=== PATIENT | female | born 1985 | race Caucasian/White ===

== ENCOUNTER 2018-07-08 21:26 | Emergency (ER) | payer OTHER ==
[2018-07-08 21:36] VITALS: BP 147/87
[2018-07-08] MEDS ORDERED: HYDROmorphone 1 MG/ML Syringe IVPUSH STA (21:51)
[2018-07-08] MEDS ORDERED: Ondansetron 4 MG/2 ML SDV IVPUSH ONE (21:51)
[2018-07-08] MEDS ORDERED: Sodium Chloride 0.9% 1,000 ML IV SCH (22:00)
--- NOTE | 2018-07-08 22:06 | EDM.PDOC ---
ED HPI GENERAL MEDICAL PROBLEM - General Chief Complaint: Abdominal Pain Stated Complaint: HAS CA PAIN IN STOMACH Time Seen by Provider: 07/08/18 21:36 Source of Information: Reports: Patient, Family (), RN Notes Reviewed History Limitations: Reports: No Limitations - History of Present Illness INITIAL COMMENTS - FREE TEXT/NARRATIVE: The patient states that she developed sharp upper abdominal pain around 20:00, shortly followed by nausea and dry heaves. The pain waxes and wanes, with a wave coming about every 5-10 minutes. It does not radiate. She has not identified any modifiers, although she states that she is feeling somewhat better while supine here in the ED. Her nausea has resolved. No recent fever. No associated diarrhea. No urinary symptoms or flank pain. The patient reports that she had similar symptoms, although less severe, this morning. The patient states that she took some Tums earlier today, and famotidine just prior to coming to the ED, without relief of her symptoms. The patient has a history of adenocarcinoma of the cervix. She states that she was initially staged at IB1, but that when she had her hysterectomy, lymph node involvement was found, which would make her IIIC1 or IIIC2. She is currently receiving both chemotherapy and radiation therapy. Her PCP is Dr. Benoit. Her Oncologist in [place] is Dr. Mendenhall. Her Gynecologic Oncologist in [place] is Dr. Santiago. Epigastric Pain Score (Numeric/FACES): 8 - Related Data Allergies Allergy/AdvReac Type Severity Reaction Status Date / Time codeine Allergy Vomiting Verified 07/08/18 21:36 ondansetron [From Zofran] Allergy Abdominal Verified 07/08/18 21:36 Cramps Home Meds: Home Meds Cetirizine [ZyrTEC] 10 mg PO BEDTIME PRN 01/27/14 [History] Omeprazole [Prilosec] 40 mg PO QAM #30 capsule. 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: Neurological History: Reports: Migraines Endocrine/Metabolic History: Reports: Diabetes, Gestational Oncologic (Cancer) History: Reports: Cervix - Past Surgical History HEENT Surgical History: Reports: Naso-Sinus Surgery (Deviated septum, x 2), Oral Surgery (wisdom teeth extraction), Tonsillectomy Cardiovascular Surgical History: Reports: Other (See Below) (Left Port-A-Cath) Female Surgical History: Reports: Hysterectomy Musculoskeletal Surgical History: Reports: Ganglion Cyst (left wrist) Social & Family History - Tobacco Use Smoking Status *Q: Never Smoker Second Hand Smoke Exposure: No - Caffeine Use Caffeine Use: Reports: None - Alcohol Use Alcohol Use History: Yes Alcohol Use Frequency: Socially - Recreational Drug Use Recreational Drug Use: No - Living Situation & Occupation Living situation: Reports: , with Spouse, with Family (1 child) 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 ED EXAM, GI/ABD - Physical Exam Exam: See Below Exam Limited By: No Limitations General Appearance: Alert, WD/WN, Mild Distress (occasionally winces with abdominal pain) Eyes: Bilateral: Normal Appearance, EOMI Ears: Normal External Exam, Hearing Grossly Normal Nose: Normal Inspection Throat/Mouth: Normal Inspection, Normal Lips, Normal Voice, No Airway Compromise Head: Atraumatic, Normocephalic Neck: Normal Inspection, Full Range of Motion Respiratory/Chest: No Respiratory Distress, Lungs Clear, Normal Breath Sounds, No Accessory Muscle Use Cardiovascular: Normal Peripheral Pulses, Regular Rate, Rhythm, No Edema, No Gallop, No JVD, No Murmur, No Rub GI/Abdominal Exam: Soft, No Organomegaly, No Distention, No Abnormal Bruit, No Mass, Tender (modest, right upper quadrant only. Essentially nontender elsewhere.), Abnormal Bowel Sounds (hyperactive, but no tinkles or rushes) (Female) Exam: Deferred Rectal (Female) Exam: Deferred Back Exam: Normal Inspection, Full Range of Motion. No: CVA Tenderness (L), CVA Tenderness (R) Extremities: Normal Inspection, Normal Range of Motion, No Pedal Edema, Normal Capillary Refill Neurological: Alert, Oriented, Normal Cognition, No Motor/Sensory Deficits Psychiatric: Normal Affect Skin Exam: Warm, Dry, Intact, Normal Color, No Rash Course - Vital Signs Last Recorded V/S: Last Vital Signs Temp 36.6 C 07/08/18 21:33 Pulse 86 07/08/18 21:33 Resp 18 07/08/18 21:33 BP 147/87 H 07/08/18 21:33 Pulse Ox 99 07/08/18 21:33 - Orders/Labs/Meds Orders: Active Orders 24 hr Category Date Time Status Abdomen 1V Upright [CR] Stat Exams 07/08/18 21:52 Taken Abdomen Pelvis w Cont [CT] Stat Exams 07/08/18 22:47 Taken Sodium Chloride 0.9% [Normal Saline] 1,000 ml Med 07/08/18 22:00 Active IV ASDIRECTED Medication Orders Sodium Chloride (Normal Saline) 1,000 mls @ 150 mls/hr IV ASDIRECTED BARBARA Last Admin: 07/08/18 22:36 Dose: 150 mls/hr Labs: Laboratory Tests 07/08/18 07/08/18 Range/Units 22:20 22:20 WBC 4.50 (3.98-10.04) K/mm3 RBC 3.68 L (3.98-5.22) M/mm3 Hgb 10.1 L (11.2-15.7) gm/L Hct 30.8 L (34.1-44.9) % MCV 83.7 (79.4-94.8) fl MCH 27.4 (25.6-32.2) pg MCHC 32.8 (32.2-35.5) g/dl RDW Std Deviation 38.7 (36.4-46.3) fL Plt Count 151 L (182-369) K/mm3 MPV 10.9 (9.4-12.3) fl Neutrophils % (Manual) 82 H (40-60) % Band Neutrophils % 0 (0-10) % Lymphocytes % (Manual) 7 L (20-40) % Atypical Lymphs % 0 % Monocytes % (Manual) 11 H (2-10) % Eosinophils % (Manual) 0 L (0.7-5.8) % Basophils % (Manual) 0 L (0.1-1.2) Platelet Estimate Adequate Hypochromasia 1+ slight Microcytosis 1+ slight RBC Morph Comment Abnormal Sodium 139 (136-145) mEq/L Potassium 3.5 (3.5-5.1) mEq/L Chloride 105 (98-107) mEq/L Carbon Dioxide 24 (21-32) mEq/L Anion Gap 13.5 (5-15) BUN 13 (7-18) mg/dL Creatinine 0.7 (0.55-1.02) mg/dL Est Cr Clr Drug Dosing 94.56 mL/min Estimated GFR (MDRD) > 60 (>60) mL/min BUN/Creatinine Ratio 18.6 H (14-18) Glucose 100 (74-106) mg/dL Calcium 9.3 (8.5-10.1) mg/dL Total Bilirubin 0.2 (0.2-1.0) mg/dL AST 12 L (15-37) U/L ALT 35 (14-59) U/L Alkaline Phosphatase 53 (46-116) U/L Total Protein 6.6 (6.4-8.2) g/dl Albumin 3.6 (3.4-5.0) g/dl Globulin 3.0 gm/dL Albumin/Globulin Ratio 1.2 (1-2) Lipase 105 (73-393) U/L Meds: Medications Generic Name Dose Route Start Last Admin Trade Name Freq PRN Reason Stop Dose Admin Sodium Chloride 1,000 mls @ 150 mls/hr 07/08/18 22:00 07/08/18 22:36 Normal Saline IV 150 mls/hr ASDIRECTED BARBARA Administration Discontinued Medications Generic Name Dose Route Start Last Admin Trade Name Freq PRN Reason Stop Dose Admin Diatrizoate Meglum/Diatrizoate Sod 90 ml 07/09/18 00:36 07/09/18 00:58 Gastrografin 37% PO 07/09/18 00:37 90 ml ONETIME ONE Administration Hydromorphone HCl 1 mg 07/08/18 21:51 Dilaudid IVPUSH 07/08/18 21:52 ONETIME STA Iopamidol 100 ml 07/09/18 00:36 07/09/18 00:58 Isovue-300 (61%) IVPUSH 07/09/18 00:37 100 ml ONETIME ONE Administration Metoclopramide HCl 10 mg 07/08/18 22:22 07/08/18 22:36 Reglan IVPUSH 07/08/18 22:23 10 mg ONETIME STA Administration Morphine Sulfate 6 mg 07/08/18 22:22 07/08/18 22:35 Morphine IVPUSH 07/08/18 22:23 Not Given ONETIME ONE Morphine Sulfate Confirm 07/08/18 22:25 07/08/18 22:36 Morphine Administered 07/08/18 22:26 10 mg Dose Administration 10 mg .ROUTE .STK-MED ONE Morphine Sulfate 6 mg 07/08/18 22:34 07/08/18 22:36 Morphine IVPUSH 07/08/18 22:35 Not Given ONETIME ONE Ondansetron HCl 4 mg 07/08/18 21:51 Zofran IVPUSH 07/08/18 21:52 ONETIME ONE - Re-Assessments/Exams Free Text/Narrative Re-Assessment/Exam: 07/08/18 21:53 The repetitive waves of pain that the patient is experiencing, along with active bowel sounds, only modest tenderness, and nausea with dry heaves, without diarrhea, is concerning for a small bowel obstruction. I have ordered blood work, including a lipase, and an upright abdominal radiograph, to look for air-fluid levels. If her x-ray is positive for air-fluid levels, I believe we can treat for a small bowel obstruction without having to administer the unnecessary radiation of the CT scan. If her x-ray is negative, however, I believe a CT scan of her abdomen and pelvis will be needed. I have ordered Dilaudid, Zofran, and IV fluid. 07/08/18 22:23 Notified by Belinda CRAFT that the patient prefers morphine over Dilaudid, and that Zofran may cause stomach cramps. I therefore canceled both the Dilaudid and Zofran, and have ordered morphine and Reglan. 07/08/18 22:45 Upright abdominal radiograph appears to demonstrate a nonspecific bowel gas pattern. No free air. Numerous surgical clips in the pelvis, consistent with prior pelvic surgery. Formal read per the Radiologist pending. 07/08/18 22:49 As above, with the abdominal radiograph without findings consistent with a small bowel obstruction, I believe a CT scan of the abdomen and pelvis is necessary to determine the cause of her abdominal pain. This was discussed with the patient, who is agreeable. 07/09/18 01:29 CT of the abdomen and pelvis with oral and IV contrast is read by vRmontana as "No evidence of acute abdominopelvic pathology." 07/09/18 01:51 Test results discussed with the patient and her . She states that she is feeling much better, although still has some nausea. Sindhu's workup is unremarkable, and does not explain the cause of her symptoms. I believe that the patient can safely be discharged home. She states that she has plenty of antiemetics at home. I would like her to contact her Oncologist to let them know that she was in the ED. Departure - Departure Time of Disposition: 01:52 Disposition: Home, Self-Care 01 Condition: Fair Clinical Impression: Upper abdominal pain of unknown etiology, Nausea - Discharge Information *PRESCRIPTION DRUG MONITORING PROGRAM REVIEWED*: Not Applicable *COPY OF PRESCRIPTION DRUG MONITORING REPORT IN PATIENT ADAM: Not Applicable Referrals: Sunil Mendenhall MD [Primary Care Provider] - Demond Benoit MD [Physician] - Forms: ED Department Discharge Additional Instructions: You were seen in the emergency room for upper abdominal pain and nausea with dry daniela arzola. Workup in the ER included blood work, an upright abdominal x-ray, and a CT scan of your abdomen and pelvis with oral and IV contrast. Your entire workup was unremarkable, and did not explain the cause of your pain. You may continue to take your anti-nausea medicines as prescribed. We recommend that you notify your Oncologists of your ER visit and negative workup. Follow-up with your PCP, Dr. Benoit, as needed. If any other problems, please do not hesitate to return to the ER. - My Orders Last 24 Hours: My Active Orders 07/08/18 21:52 Abdomen 1V Upright [CR] Stat 07/08/18 22:00 Sodium Chloride 0.9% [Normal Saline] 1,000 ml IV ASDIRECTED 07/08/18 22:47 Abdomen Pelvis w Cont [CT] Stat - Assessment/Plan Last 24 Hours: My Active Orders 07/08/18 21:52 Abdomen 1V Upright [CR] Stat 07/08/18 22:00 Sodium Chloride 0.9% [Normal Saline] 1,000 ml IV ASDIRECTED 07/08/18 22:47 Abdomen Pelvis w Cont [CT] Stat
[2018-07-08] MEDS ORDERED: Morphine 10 MG/ML Syringe IVPUSH ONE ×2 (22:22→22:34)
[2018-07-08] MEDS ORDERED: Metoclopramide 10 MG/2 ML SDV IVPUSH STA (22:22)
[2018-07-08] MEDS: Morphine Sulfate 10mg/ml SDV ONE ×2 (22:35→22:36)
[2018-07-09] MEDS ORDERED: Iopamidol 612 MG/ML 100 ML Bottle IVPUSH ONE (00:36)
[2018-07-09] MEDS ORDERED: Diatrizoate Meglumine/Diatrizoate Sodium 37% 120 ML Bottle PO ONE (00:36)
--- NOTE | 2018-07-09 06:57 | CR ---
Abdomen: Upright view of the abdomen was obtained. Comparison: No prior abdominal x-ray. No free air is seen. Bowel gas pattern is normal. Multiple surgical clips are seen within the pelvis. No free air is seen. Bony structures are within normal limits for the patient's age. Impression: 1. Incidental findings. Diagnostic code #2
--- NOTE | 2018-07-09 07:33 | CT ---
CT abdomen and pelvis Technique: Multiple axial sections were obtained from above the dome of the diaphragm inferiorly through the pubic symphysis. Intravenous and oral contrast was utilized. Oral contrast remains within stomach and some proximal small bowel. Delayed images were also obtained through the abdomen and pelvis. Comparison: Previous CT abdomen and pelvis exam of 07/23/10. Findings: Small portion of the visualized lung bases are clear. Liver contains no focal abnormality. Spleen appears within normal limits. Cyst is noted within the upper pole of the right kidney measuring 1.5 cm. Kidneys are otherwise unremarkable. Gallbladder contains no calcified gallstones. Pancreas is within normal limits. Aorta shows no aneurysm. No retroperitoneal adenopathy is seen. No pelvic mass or adenopathy is seen. Multiple surgical clips are seen within the pelvis. No bowel dilatation is seen. Delayed images show contrast excretion into both ureters. Delayed images show contrast within the bladder. Appendix is seen and is normal in size. Bone window settings were reviewed which appear within normal limits for the patient's age. Impression: 1. Incidental findings. Nothing acute is seen on CT study of the abdomen and pelvis. Diagnostic code #2 I agree with preliminary report from [facility], finalized on 07/09/18, 2:27 AM Central Time
== END 2018-07-09 02:08 | disposition home or self-care (01) ==
LOC: JD.ED 21:26
DX: R10.10 Upper abdominal pain, unspecified (principal); R11.0 Nausea; Z88.5 Allergy status to narcotic agent; Z88.8 Allergy status to other drugs, medicaments and biological substances; Z79.899 Other long term (current) drug therapy
CPT/HCPCS: 36415; 74018; 74177; 80053; 83690; 85007; 85027; 96361; 96374; 96375; 99285; J1642; J2270; J2765; J7040; Q9963; Q9967

== ENCOUNTER 2020-05-09 20:01 | Emergency (ER) | payer OTHER ==
--- NOTE | 2020-05-09 20:14 | EDM.PDOC ---
ED HPI GENERAL MEDICAL PROBLEM - General Chief Complaint: Cardiovascular Problem Stated Complaint: DIZZY/LIGHTHEADED Time Seen by Provider: 05/09/20 20:08 Source of Information: Reports: Patient, RN Notes Reviewed History Limitations: Reports: No Limitations - History of Present Illness INITIAL COMMENTS - FREE TEXT/NARRATIVE: Patient is a 34-year-old female who presents to the ED for her sudden onset dizziness. Patient has a history of cervical cancer, and she received both chemo and radiation. She states that she has not done this in a while however. She notes that she does have some residual dizziness since the chemo. She states that around 4 or 4:30 PM this afternoon, she became increasingly dizzy, more so from her baseline. She characterizes this more as a lightheadedness rather than a world spinning dizziness. She states that she tried to get up off the couch after she was folding laundry, and as she was walking, she states she just toppled over to the side. She notes that she has a blood pressure cuff at home she took her blood pressure at this time and it was 185/98. She states that her blood pressure has never been that high. She notes that she has been eating and drinking appropriately. She has no fevers or chills, cough or shortness of breath, vomiting. She states she could have had may be a slight bit of nausea with this, and she has had chronic diarrhea since radiation. Her primary care provider is Dr. Benoit. - Related Data Allergies Allergy/AdvReac Type Severity Reaction Status Date / Time codeine Allergy Vomiting Verified 05/09/20 20:09 ondansetron [From Zofran] Allergy Abdominal Verified 05/09/20 20:09 Cramps Home Meds: Home Meds Promethazine [Phenergan] 25 mg PO Q6H PRN #20 tablet 10/28/15 [Rx] Albuterol Sulfate [Proair Respiclick] 90 mcg IH Q4H PRN 11/21/15 [History] Fluticasone Propionate [Flonase] 1 spray NASBOTH DAILY 11/21/15 [History] Loratadine [Claritin] 10 mg PO DAILY 05/09/20 [History] Meclizine [Antivert] 25 mg PO DAILY #7 tab 05/09/20 [Rx] Pantoprazole [ProTONIX] 40 mg PO DAILY 05/09/20 [History] estradioL [Vivelle-Dot] 1 each TD ASDIRECTED 05/09/20 [History] Past Medical History HEENT History: Reports: Allergic Rhinitis Respiratory History: Reports: Asthma Gastrointestinal History: Reports: Chronic Diarrhea (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 ED EXAM, GENERAL - Physical Exam Exam: See Below Exam Limited By: No Limitations General Appearance: Alert, WD/WN, No Apparent Distress Eye Exam: Bilateral Eye: EOMI, Normal Inspection, PERRL Ears: Normal External Exam, Normal Canal, Hearing Grossly Normal, Other (there is some clear fluid behind both TMs) Throat/Mouth: Normal Inspection, Normal Lips, Normal Teeth, Normal Gums, Normal Oropharynx, Normal Voice, No Airway Compromise Head: Atraumatic, Normocephalic Neck: Normal Inspection Respiratory/Chest: No Respiratory Distress, Lungs Clear, Normal Breath Sounds, No Accessory Muscle Use, Chest Non-Tender Cardiovascular: Normal Peripheral Pulses, Regular Rate, Rhythm, No Murmur Peripheral Pulses: 2+: Radial (L), Radial (R) Extremities: Normal Inspection, Normal Capillary Refill Neurological: Alert, Oriented, CN II-XII Intact, Normal Cognition, No Motor/Sensory Deficits Psychiatric: Normal Affect, Normal Mood Skin Exam: Warm, Dry, Intact, Normal Color, No Rash Course - Vital Signs Last Recorded V/S: Last Vital Signs Temp 97.1 F 05/09/20 20:14 Pulse 88 05/09/20 20:14 Resp 18 05/09/20 20:14 BP 143/96 H 05/09/20 20:14 Pulse Ox 100 05/09/20 20:14 Orthostatic Blood Pressure [ 121/74 Standing] Orthostatic Blood Pressure [ 110/78 Supine] - Orders/Labs/Meds Orders: Active Orders 24 hr Category Date Time Status Orthostatic Vital Signs [RC] ASDIRECTED Care 05/09/20 20:27 Active Peripheral IV Care [RC] . DIRECTED Care 05/09/20 20:27 Active Potassium Chloride [Klor-Con M20] Med 05/09/20 21:44 Once 40 meq PO ONETIME ONE Sodium Chloride 0.9% [Saline Flush] Med 05/09/20 20:26 Active 10 ml FLUSH ASDIRECTED PRN Peripheral IV Insertion Adult [OM.PC] Routine Oth 05/09/20 20:26 Ordered Medication Orders Sodium Chloride (Saline Flush) 10 ml FLUSH ASDIRECTED PRN PRN Reason: Keep Vein Open Labs: Laboratory Tests 05/09/20 05/09/20 Range/Units 20:42 20:42 WBC 6.29 (3.98-10.04) K/mm3 RBC 4.45 (3.98-5.22) M/mm3 Hgb 12.9 D (11.2-15.7) gm/dl Hct 38.1 (34.1-44.9) % MCV 85.6 (79.4-94.8) fl MCH 29.0 (25.6-32.2) pg MCHC 33.9 (32.2-35.5) g/dl RDW Std Deviation 37.7 (36.4-46.3) fL Plt Count 193 (182-369) K/mm3 MPV 10.4 (9.4-12.3) fl Neut % (Auto) 63.8 (34.0-71.1) % Lymph % (Auto) 26.4 (19.3-51.7) % Dickinson % (Auto) 8.3 (4.7-12.5) % Eos % (Auto) 0.8 (0.7-5.8) Baso % (Auto) 0.5 (0.1-1.2) % Neut # (Auto) 4.02 (1.56-6.13) K/mm3 Lymph # (Auto) 1.66 (1.18-3.74) K/mm3 Dickinson # (Auto) 0.52 H (0.24-0.36) K/mm3 Eos # (Auto) 0.05 (0.04-0.36) K/mm3 Baso # (Auto) 0.03 (0.01-0.08) K/mm3 Sodium 137 (136-145) mEq/L Potassium 3.1 L (3.5-5.1) mEq/L Chloride 102 (98-107) mEq/L Carbon Dioxide 24 (21-32) mEq/L Anion Gap 14.1 (5-15) BUN 17 (7-18) mg/dL Creatinine 0.7 (0.55-1.02) mg/dL Est Cr Clr Drug Dosing 92.37 mL/min Estimated GFR (MDRD) > 60 (>60) mL/min BUN/Creatinine Ratio 24.3 H (14-18) Glucose 116 H (74-106) mg/dL Calcium 9.5 (8.5-10.1) mg/dL Magnesium 1.9 (1.8-2.4) mg/dl Total Bilirubin 0.5 (0.2-1.0) mg/dL AST 12 L (15-37) U/L ALT 23 (14-59) U/L Alkaline Phosphatase 49 (46-116) U/L Total Protein 7.2 (6.4-8.2) g/dl Albumin 4.0 (3.4-5.0) g/dl Globulin 3.2 gm/dL Albumin/Globulin Ratio 1.3 (1-2) TSH 3rd Generation 3.629 (0.358-3.74) uIU/mL Meds: Medications Generic Name Dose Route Start Last Admin Trade Name Freq PRN Reason Stop Dose Admin Sodium Chloride 10 ml 05/09/20 20:26 Saline Flush FLUSH ASDIRECTED PRN Keep Vein Open Discontinued Medications Generic Name Dose Route Start Last Admin Trade Name Freq PRN Reason Stop Dose Admin Meclizine HCl 25 mg 05/09/20 20:27 05/09/20 20:49 Antivert PO 05/09/20 20:28 25 mg ONETIME ONE Administration - Re-Assessments/Exams Free Text/Narrative Re-Assessment/Exam: 05/09/20 20:34 Patient presents to the ED for the evaluation of her onset of dizziness. This seems fairly nondescript. Blood pressure is okay at this time but we will get orthostatic vital signs, basic labs, and give her a dose of meclizine to see if this does not help. 05/09/20 21:30 Patient reports some symptomatic relief with the meclizine given. Her vitals demonstrate that she is not orthostatic at this time. CBC is within normal limits, we are still awaiting metabolic panel, and other labs. 05/09/20 21:45 Metabolic panel is impressive only for a slightly low potassium level at 3.1. She will get a one-time dose of 40 mEq p.o. potassium for supplementation. Patient will be discharged home after this medication is given. Departure - Departure Time of Disposition: 21:45 Disposition: Home, Self-Care 01 Condition: Good Clinical Impression: Vertigo, Hypokalemia Prescriptions: Meclizine [Antivert] 25 mg PO DAILY #7 tab Instructions: Potassium Content of Foods, Dizziness, [id number] Referrals: Demond Benoit MD [Primary Care Provider] - Forms: ED Department Discharge Additional Instructions: You were evaluated in the ER today for your feelings of dizziness. You had some laboratory evaluation you had a mildly low potassium level at 3.1, you were given a one-time dose for oral supplementation of this. You were given a dose of meclizine, for your reported dizziness, and this seemed to help relieve some of your symptoms. You were given a prescription of this to take over the next few days as well to help relieve the feelings of dizziness. Recommend you try to increase your oral fluid intake, fluids like Gatorade/Powerade would be sufficient. Sometimes people can get vertigo or be dizzy due to slight fluid imbalance. Sometimes even when we think we are drinking enough fluids, we are not taking in enough fluids for the body to work quite right. Please return to the ER at any time if symptoms change or worsen. Sepsis Event Note (ED) - Focused Exam Vital Signs: Vital Signs Temp Pulse Resp BP Pulse Ox 05/09/20 20:14 97.1 F 88 18 143/96 H 100 - My Orders Last 24 Hours: My Active Orders 05/09/20 20:26 Sodium Chloride 0.9% [Saline Flush] 10 ml FLUSH ASDIRECTED PRN Peripheral IV Insertion Adult [OM.PC] Routine 05/09/20 20:27 Orthostatic Vital Signs [RC] ASDIRECTED Peripheral IV Care [RC] . DIRECTED 05/09/20 21:44 Potassium Chloride [Klor-Con M20] 40 meq PO ONETIME ONE - Assessment/Plan Last 24 Hours: My Active Orders 05/09/20 20:26 Sodium Chloride 0.9% [Saline Flush] 10 ml FLUSH ASDIRECTED PRN Peripheral IV Insertion Adult [OM.PC] Routine 05/09/20 20:27 Orthostatic Vital Signs [RC] ASDIRECTED Peripheral IV Care [RC] . DIRECTED 05/09/20 21:44 Potassium Chloride [Klor-Con M20] 40 meq PO ONETIME ONE
[2020-05-09 20:16] VITALS: BP 143/96; PULSE 88
[2020-05-09] MEDS ORDERED: Sodium Chloride 0.9% 10 ML Syringe FLUSH PRN (20:26)
[2020-05-09] MEDS ORDERED: Potassium Chloride 20 MEQ Tab.ER PO ONE (21:44)
== END 2020-05-09 22:01 | disposition home or self-care (01) ==
LOC: JD.ED 20:01
DX: R42 Dizziness and giddiness (principal); E87.6 Hypokalemia; J45.909 Unspecified asthma, uncomplicated; Z88.5 Allergy status to narcotic agent; Z88.8 Allergy status to other drugs, medicaments and biological substances; Z79.899 Other long term (current) drug therapy
CPT/HCPCS: 36415; 80053; 83735; 84443; 85025; 99284; A9270

== ENCOUNTER 2024-01-10 10:19 | Emergency (ER) | payer BC, OTHER ==
[2024-01-10] MEDS: Ketorolac 30 MG/ML SDV IVPUSH ONE (11:29)
[2024-01-10] MEDS: Sodium Chloride 0.9% 1,000 ML IV ONE (11:29)
[2024-01-10] MEDS: Metoclopramide 10 MG/2 ML SDV IVPUSH ONE (11:29)
[2024-01-10] MEDS: diphenhydrAMINE 50 MG/ML SDV IVPUSH ONE (11:29)
[2024-01-10 14:07] VITALS: BP 115/81; PULSE 69
== END 2024-01-10 13:06 | disposition home or self-care (01) ==
LOC: JD.ED 10:19
DX: G43.909 Migraine, unspecified, not intractable, without status migrainosus (principal); J45.909 Unspecified asthma, uncomplicated; Z90.710 Acquired absence of both cervix and uterus; Z79.899 Other long term (current) drug therapy; Z88.6 Allergy status to analgesic agent; Z88.5 Allergy status to narcotic agent; Z88.8 Allergy status to other drugs, medicaments and biological substances
CPT/HCPCS: 96361; 96374; 96375; 99283; J1200; J1885; J2765; J7030